=== PATIENT | female | born 1975 | race Caucasian/White ===

== ENCOUNTER 2017-04-10 13:23 | Emergency (ER) | payer OTHER ==
[~2017-04-10] VITALS: Ht 170.2 cm; Wt 88.5 kg
[~2017-04-10 13:23] MED LIST: ACTICIN 5% CREA60 G1 TOP; CLOTRIMAZOLE 1%15 G1 TOP; DOXYCYCLINE 10100 MG PO; NOHOMEMEDICATIONS; PREDNISONE 20 M20 M1 PO; PROVENTIL HFA6.7 G1 INH
[2017-04-10] MEDS ORDERED: CEFUROXIME250 MG PO (13:38)
[2017-04-10] MEDS ORDERED: FLAGYL500 MG PO ×2 (13:38→13:53)
[2017-04-10] MEDS ORDERED: TRANSDERM-SCOP1 EACH TRANSDERM (13:53)
[2017-04-10] MEDS ORDERED: CEFUROXIME500 MG PO (13:53)
[2017-04-10 14:02] VITALS: BP 113/69
== END 2017-04-10 14:03 | disposition home or self-care (01) ==
LOC: M.ERS 13:23
DX: Z76.0 Encounter for issue of repeat prescription (principal); E11.9 Type 2 diabetes mellitus without complications; F17.210 Nicotine dependence, cigarettes, uncomplicated; Z98.890 Other specified postprocedural states

== ENCOUNTER 2018-05-05 11:23 | Emergency (ER) | payer OTHER ==
[~2018-05-05] VITALS: Ht 170.2 cm; Wt 79.4 kg
[~2018-05-05 11:23] MED LIST changes: +CEFUROXIME250 MG PO; +CEFUROXIME500 MG PO; +FLAGYL500 MG PO; +TRANSDERM-SCOP1 EACH TRANSDERM
[2018-05-05] MEDS ORDERED: FLONASE 0.05%50 MCG NASAL (12:30)
[2018-05-05] MEDS ORDERED: BACITRACIN3.5 GM TOP (12:30)
[2018-05-05 12:42] VITALS: BP 117/72
== END 2018-05-05 12:44 | disposition home or self-care (01) ==
LOC: M.ERS 11:23
DX: J02.9 Acute pharyngitis, unspecified (principal); R59.1 Generalized enlarged lymph nodes; L98.9 Disorder of the skin and subcutaneous tissue, unspecified; E11.9 Type 2 diabetes mellitus without complications; Z85.43 Personal history of malignant neoplasm of ovary; F17.210 Nicotine dependence, cigarettes, uncomplicated

== ENCOUNTER 2018-12-02 13:54 | Emergency (ER) | payer OTHER ==
[~2018-12-02] VITALS: Ht 170.2 cm; Wt 81.7 kg
[~2018-12-02 13:54] MED LIST changes: +BACITRACIN3.5 GM TOP; +FLONASE 0.05%50 MCG NASAL
[2018-12-02] MEDS ORDERED: TESSALON PERLE100 M1 PO (14:29)
[2018-12-02 14:32] VITALS: BP 106/76
== END 2018-12-02 14:32 | disposition home or self-care (01) ==
LOC: M.ERS 13:54
DX: J06.9 Acute upper respiratory infection, unspecified (principal); E11.9 Type 2 diabetes mellitus without complications; F17.210 Nicotine dependence, cigarettes, uncomplicated; Z98.890 Other specified postprocedural states; Z85.43 Personal history of malignant neoplasm of ovary

== ENCOUNTER 2019-04-09 23:25 | Emergency (ER) | payer OTHER ==
[~2019-04-09] VITALS: Ht 172.7 cm; Wt 81.7 kg
[~2019-04-09 23:25] MED LIST changes: +TESSALON PERLE100 M1 PO
[2019-04-10] MEDS ORDERED: CYCLOBENZAPRINE5 MG PO (01:37)
[2019-04-10] MEDS ORDERED: IBUPROFEN 800800 MG PO (01:37)
[2019-04-10] MEDS ORDERED: HYDROCODON-ACE1 EAC7 PO (01:37)
[2019-04-10 01:58] VITALS: BP 108/62
== END 2019-04-10 01:58 | disposition home or self-care (01) ==
LOC: M.ERS 23:25
DX: S13.4XXA Sprain of ligaments of cervical spine, initial encounter (principal); S30.0XXA Contusion of lower back and pelvis, initial encounter; S00.83XA Contusion of other part of head, initial encounter; E11.9 Type 2 diabetes mellitus without complications; F17.210 Nicotine dependence, cigarettes, uncomplicated; Z98.890 Other specified postprocedural states; Z85.43 Personal history of malignant neoplasm of ovary; W18.39XA Other fall on same level, initial encounter; Y92.89 Other specified places as the place of occurrence of the external cause; Y93.89 Activity, other specified; Y99.8 Other external cause status

== ENCOUNTER 2019-05-06 17:28 | Emergency (ER) | payer OTHER ==
[~2019-05-06] VITALS: Ht 172.7 cm; Wt 81.7 kg
[~2019-05-06 17:28] MED LIST changes: +CYCLOBENZAPRINE5 MG PO; +HYDROCODON-ACE1 EAC7 PO; +IBUPROFEN 800800 MG PO
[2019-05-06] MEDS ORDERED: TRIAMCINOLONE A80 G2 TOP (18:28)
[2019-05-06] MEDS ORDERED: DOXYCYCLINE 10100 MG PO (18:28)
[2019-05-06] MEDS ORDERED: HYDROXYZINE HCL25 M2 PO (18:28)
[2019-05-06 19:00] VITALS: BP 145/78
== END 2019-05-06 19:00 | disposition home or self-care (01) ==
LOC: M.ERS 17:28
DX: L73.2 Hidradenitis suppurativa (principal); E11.9 Type 2 diabetes mellitus without complications; F17.210 Nicotine dependence, cigarettes, uncomplicated; Z98.890 Other specified postprocedural states; Z85.43 Personal history of malignant neoplasm of ovary

== ENCOUNTER 2019-11-13 18:27 | Emergency (ER) | payer OTHER ==
[~2019-11-13] VITALS: Ht 170.2 cm; Wt 81.7 kg
[~2019-11-13 18:27] MED LIST changes: +HYDROXYZINE HCL25 M2 PO; +TRIAMCINOLONE A80 G2 TOP
[2019-11-13 19:34] LABS: ABSOLUTE BASOPHILS 0.1 thou/uL (0.0-0.2); ABSOLUTE EOSINOPHILS 0.1 thou/uL (0.0-0.7); ABSOLUTE LYMPHOCYTES 2.5 thou/uL (0.8-5.3); ABSOLUTE MONOCYTES 0.6 thou/uL (0.0-1.2); ABSOLUTE NEUTROPHILS 4.1 thou/uL (1.6-8.1); BASOPHILS 1.2 %; EOSINOPHILS 1.6 %; HEMATOCRIT 38.8 % (37.0-47.0); HEMOGLOBIN 13.7 gm/dL (12.0-15.0); LYMPHOCYTES 34.3 %; MCHC 35.4 g/dL (28.0-37.0); MCV 93.4 fL (80.0-100.0); MONOCYTES 7.6 %; MPV 8.8 fl. (7.2-11.1); NUCLEATED RBCS 0 /100WBC; PLATELET COUNT* 246 thou/uL (150-400); POLYS 55.3 %; RBC 4.16 mil/uL (4.20-5.00); RDW-CV 12.9 % (10.5-14.5); WBC 7.4 thou/uL (4.0-11.0)
[2019-11-13 19:44] LABS: PROTIME 10.7 Seconds (9.20-11.50)
[2019-11-13 19:52] LABS: CALCIUM 8.6 mg/dL (8.5-10.1); POTASSIUM 3.5 mmol/L (3.5-5.1)
[2019-11-13 19:56] LABS: ALBUMIN 3.8 g/dL (3.4-5.0); TOTAL BILIRUBIN 0.3 mg/dL (<0.1-1.0); TOTAL PROTEIN 7.4 g/dL (6.4-8.2)
[2019-11-14 01:59] VITALS: BP 109/58
--- NOTE | 2019-11-14 16:14 | EKG ---
[place] [address] ELECTROCARDIOGRAM REPORT Name: FATOUGUILLERMO Room: [facility]#: [id number] Admission: 11/13/19 Attend Phys: Discharge: 11/14/19 Date of : 75 Date of Service: 11/13/19 183 Report #: [id number] THIS REPORT FOR: //name// [facility] ED Test Date: 2019-11-13 Test Time: 18:34:30 Pat Name: GUILLERMO LAINEZ Department: Room: Gender: F [employer]ing Machine Operator: TDS : 1975 Requested By: Shante Oliveira Order Number: [id number] MD: Erick Guzman Measurements Intervals [place] Rate: 74 P: 22 DC: 151 QRS: 48 QRSD: 117 T: 35 QT: 378 QTc: 420 Interpretive Statements Sinus rhythm Incomplete right bundle branch block Baseline wander in lead(s) II,III,aVR,aVL,aVF,V1,V2,V3,V4,V5,V6 No previous ECG available for comparison Electronically Signed On 11-14-2019 16:14:35 CDT by Erick Guzman [email or web address] <ELECTRONICALLY SIGNED> By: Erick Guzman MD, FACC 11/14/19 1614 1834 1834 Erick Guzman MD, FAC /EPI
== END 2019-11-14 02:00 | disposition home or self-care (01) ==
LOC: M.ERS 18:27
PROVIDERS: Personal Emergency Response Attendant
DX: N83.201 Unspecified ovarian cyst, right side (principal); F17.210 Nicotine dependence, cigarettes, uncomplicated; E11.9 Type 2 diabetes mellitus without complications